=== PATIENT | female | born 1975 | race Caucasian/White ===

== ENCOUNTER 2021-01-31 10:14 | Emergency (ER) | payer BC, OTHER ==
[2021-01-31 10:47] LABS: HEMOGLOBIN 15.8 gm/dl (12.3-15.3)
[2021-01-31 10:58] LABS: RED BLOOD COUNT 5.04 M/UL (4.00-5.10); WHITE BLOOD COUNT 13.3 K/UL (4.5-11.0)
[2021-01-31 11:12] LABS: BUN/CREATININE RATIO 15 (0-10)
== END 2021-01-31 12:20 | disposition home or self-care (01) ==
LOC: ER1 10:14
PROVIDERS: Emergency Medicine
DX: R22.0 Localized swelling, mass and lump, head (principal); T38.0X5A Adverse effect of glucocorticoids and synthetic analogues, initial encounter
CPT/HCPCS: 80053; 85025; 99283; J1200; J2930

== ENCOUNTER → 2021-02-02 | Outpatient (CLI) | payer BC, OTHER | LOC: EROP 12:34 | DX: T78.40XA Allergy, unspecified, initial encounter (principal) | CPT/HCPCS: J2930 ==

== ENCOUNTER → 2021-04-22 | Outpatient (CLI) | payer BC ==
[~2021-04-22] MED LIST: ZOFRAN4 MG PO
[2021-04-22 16:27] LABS: HEMOGLOBIN 14.8 gm/dl (12.3-15.3); RED BLOOD COUNT 4.67 M/UL (4.00-5.10); WHITE BLOOD COUNT 8.4 K/UL (4.5-11.0)
[2021-04-22 16:49] LABS: BUN/CREATININE RATIO 10 (0-10)
[2021-04-24 07:13] LABS: RHEUMATOID ARTHRITIS FACTOR <10.0 IU/mL (0.0-13.9)
== END ==
LOC: LAB 15:09
PROVIDERS: Nurse Practitioner Family
DX: D89.9 Disorder involving the immune mechanism, unspecified (principal); M25.50 Pain in unspecified joint; R76.8 Other specified abnormal immunological findings in serum; T14.8XXA Other injury of unspecified body region, initial encounter; M79.10 Myalgia, unspecified site; R53.83 Other fatigue; W57.XXXA Bitten or stung by nonvenomous insect and other nonvenomous arthropods, initial encounter; Y93.9 Activity, unspecified
CPT/HCPCS: 80053; 82550; 83520; 83655; 84439; 84443; 85025; 85652; 86140; 86200; 86431

== ENCOUNTER 2021-05-13 14:21 | Emergency (ER) | payer BC ==
[~2021-05-13] VITALS: Ht 162.6 cm; Wt 76.7 kg
[2021-05-13] MEDS ORDERED: ZOFRAN4 MG PO (17:52)
== END 2021-05-13 18:15 | disposition home or self-care (01) ==
LOC: ER1 14:21
DX: U07.1 COVID-19 (principal); Z90.89 Acquired absence of other organs
CPT/HCPCS: 99283; J2405

== ENCOUNTER → 2021-07-26 | Outpatient (CLI) | payer BC ==
[2021-07-26 13:00] LABS: HEMOGLOBIN 15.7 gm/dl (12.3-15.3); RED BLOOD COUNT 4.92 M/UL (4.00-5.10); WHITE BLOOD COUNT 6.3 K/UL (4.5-11.0)
[2021-07-26 13:22] LABS: BUN/CREATININE RATIO 11 (0-10)
[2021-07-27 09:13] LABS: COMPLEMENT C3, SERUM 127 mg/dL (82-167); COMPLEMENT C4, SERUM 20 mg/dL (12-38)
[2021-07-28 11:10] LABS: TRYPTASE 4.2 ug/L (2.2-13.2); TRYPTASE 4.3 ug/L (2.2-13.2)
== END ==
LOC: LAB 12:13
PROVIDERS: Allergy & Immunology; Internal Medicine
DX: T78.1XXA Other adverse food reactions, not elsewhere classified, initial encounter (principal); J30.1 Allergic rhinitis due to pollen; L50.9 Urticaria, unspecified; J30.89 Other allergic rhinitis; J30.81 Allergic rhinitis due to animal (cat) (dog) hair and dander; R76.0 Raised antibody titer; M25.50 Pain in unspecified joint; R60.0 Localized edema; R53.83 Other fatigue
CPT/HCPCS: 36415; 80053; 81001; 82570; 82785; 83520; 83655; 84156; 85025; 86160